=== PATIENT | male | born 1945 | race Caucasian/White ===

== ENCOUNTER → 2016-06-18 | Outpatient (CLI) | payer MEDICARE ==
[2016-06-18 13:14] LABS: Blood Urea Nitrogen 19 mg/dL (9-20); Non-African American GFR(MDRD) >60 (>60 ml/min/1.73 sqM)
--- NOTE | 2016-06-18 13:57 | CT ---
EXAMINATION TYPE: CT chest w con DATE OF EXAM: 06/18/2016 1:38 PM COMPARISON: 03/31/2006 HISTORY: Shortness of Breath CT DLP: 383.9 mGycm Automated exposure control for dose reduction was used. CONTRAST: CT scan of the chest is performed with IV Contrast, patient injected with 100 mL of Omnipaque 300. FINDINGS: LUNGS: The lungs are grossly clear, there is no concerning parenchymal mass or nodule identified. T here is no pleural effusion or pneumothorax seen. The tracheobronchial tree is patent. Calcified gra nuloma right upper lobe stable in appearance. There are 2 additional nodules one within the right mid dle lobe and one within the right lower lobe measuring approximately 2 mm. Too small to characterize. MEDIASTINUM: There are no greater than 1 cm hilar or mediastinal lymph nodes. No pericardial effusi on is seen. Ossified lymph nodes in the hilum. OTHER: No additional significant abnormality is seen. There is a 1 cm nodule involving the right adr enal gland and 8mm nodule involving the left adrenal gland. Small accessory spleen noted. IMPRESSION: 1. No acute intrathoracic process. 2. Chronic granulomatous disease. 3. Additional 2 mm nodule image 34 right middle lobe too small to characterize. 2 mm nodule superior segment right lower lobe also noted. Follow-up 6 month basis. 4. Bilateral adrenal nodules are stable and most consistent with adrenal adenoma.
== END | disposition home or self-care (01) ==
LOC: RADCTMAIN 12:26
PROVIDERS: ATTEND Internal Medicine
DX: J84.10 Pulmonary fibrosis, unspecified (principal); R91.8 Other nonspecific abnormal finding of lung field
CPT/HCPCS: 82565; 84520; 71260; 36415; Q9967

== ENCOUNTER → 2016-09-05 | Outpatient (CLI) | payer MEDICARE | LOC: LABWHC1 13:49 | PROVIDERS: ATTEND Internal Medicine | DX: E03.9 Hypothyroidism, unspecified (principal) | CPT/HCPCS: 36415; 84443 ==

== ENCOUNTER 2017-05-29 10:19 | Day surgery (SDC) | payer MEDICARE ==
[~2017-05-29 10:19] MED LIST: LACTATED RINGERS 1,000 ML IV SCH; LIDOCAINE 1% 20 ML VIAL (10MG/ML) FOR IV START INTRADERMA PRN
[2017-05-29 10:51] VITALS: TEMP 98.2
[2017-05-29] MEDS ORDERED: PROPOFOL 10 MG/ML 20 ML VIAL IV ONE (11:47)
[2017-05-29 12:31] VITALS: RESP 16
[2017-05-29 12:59] VITALS: BP 143/78; PULSE 66
--- NOTE | 2017-05-29 13:38 | P.PCN ---
Date of Procedure: 05/29/17 Procedure(s) Performed: Procedure: Total colonoscopy. Preoperative diagnosis: Screening for neoplasia, patient has history of polyps. Preoperative diagnosis: Exam within normal limits. Preparation: HalfLytely prep. Sedation: Was provided by anesthesia. Brief clinical history: The patient is a 72-year-old male who is scheduled for this evaluation for screening for neoplasia because of history of polyps. His last exam was in September 2011. The patient is not having any abdominal complaints, bleeding or anemia. Procedure: With the patient on his left lateral decubitus position and after informed consent and adequate sedation, the perianal area was inspected and it did not show any fissures or fistulas. There were no masses felt on digital rectal examination. The Olympus CFQ 160L video colonoscope was then inserted in the rectum in the usual fashion and advanced to the cecum. The mucosa appeared healthy. No polyps or tumors were seen or any obvious diverticular disease or other pathology. I retroflexed the endoscope in the rectum before the endoscope was withdrawn. The patient tolerated the procedure well. Plan: The patient was reassured. He will follow up with you as planned and I recommended repeat exam in 5 years.
== END 2017-05-29 13:00 | disposition home or self-care (01) ==
LOC: ORWHC2ENDO 10:19
DX: Z12.11 Encounter for screening for malignant neoplasm of colon (principal); Z86.010 Personal history of colon polyps; I10 Essential (primary) hypertension; E07.9 Disorder of thyroid, unspecified; N40.0 Benign prostatic hyperplasia without lower urinary tract symptoms; Z79.82 Long term (current) use of aspirin; Z79.899 Other long term (current) drug therapy
CPT/HCPCS: J2704; G0105

== ENCOUNTER 2018-01-13 15:51 | Emergency (ER) | payer MEDICARE ==
[2018-01-13 15:59] VITALS: BP 141/79; PULSE 74; RESP 18; TEMP 98.1
--- NOTE | 2018-01-13 16:17 | ED ---
ENT HPI - General Chief complaint: ENT Stated complaint: bee in ear Time Seen by Provider: 01/13/18 16:01 Source: patient, RN notes reviewed Mode of arrival: ambulatory Limitations: no limitations - History of Present Illness Initial comments: This 72-year-old male past medical history of hypertension presenting today for chief complaint of bug in left ear. Patient states that about half an hour prior to presentation he was swimming in his pool when he felt a bug crawling on his left ear he was unsure what it was. He stated he attempted to swat away the insect however it crawling inside of his ear. Patient admitted to scratching sensation and pain in left ear. He is unable to the bug out state presents emergency department today. While patient was waiting in the emergency department waiting room the insect crawled out, it appeared to be a beetle. Patient's caught insect and brought into the examination room. Remainder of ROS negative patient denies any loss of hearing. - Related Data Home Medications Medication Instructions Recorded Confirmed Aspirin [Adult Low Dose Aspirin EC] 81 mg PO DAILY 05/27/17 05/27/17 Atorvastatin [Lipitor] 20 mg PO HS 05/27/17 05/27/17 Cholecalciferol [Vitamin D3] 1,000 unit PO DAILY 05/27/17 05/27/17 Levothyroxine Sodium [Synthroid] 50 mcg PO QAM 05/27/17 05/27/17 Tamsulosin [Flomax] 0.4 mg PO HS 05/27/17 05/27/17 Vit C/E/Zn/Coppr/Lutein/Zeaxan 1 tab PO DAILY 05/27/17 05/27/17 [Preservision Areds 2 Softgel] Allergies Allergy/AdvReac Type Severity Reaction Status Date / Time No Known Allergies Allergy Verified 01/13/18 15:59 Review of Systems ROS Statement: Those systems with pertinent positive or pertinent negative responses have been documented in the HPI. ROS Other: All systems not noted in ROS Statement are negative. Constitutional: Denies: fever, chills ENT: Reports: ear pain. Denies: throat pain, hearing loss Respiratory: Denies: cough, dyspnea, wheezes Cardiovascular: Denies: chest pain, palpitations Gastrointestinal: Denies: abdominal pain, nausea, vomiting Past Medical History Past Medical History: Hypertension, Prostate Disorder, Thyroid Disorder History of Any Multi-Drug Resistant Organisms: None Reported Past Surgical History: Orthopedic Surgery Additional Past Surgical History / Comment(s): BILATERAL CATARACT. RIGHT KNEE ARTHOSCOPY. RIGHT ARTHROSCOPY OF SHOULDER. PAIN PROCEDURES TO LOWER BACK. Past Anesthesia/Blood Transfusion Reactions: No Reported Reaction Past Psychological History: No Psychological Hx Reported Smoking Status: Former smoker Past Alcohol Use History: Occasional Past Drug Use History: None Reported General Exam - General Exam Comments Initial Comments: General: The patient is awake and alert, in no distress, and does not appear acutely ill. Eye: Pupils are equal, round and reactive to light, extra-ocular movements are intact. No nystagmus. There is normal conjunctiva bilaterally. No signs of icterus. Tympanic membranes are within normal limits bilaterally, cone of light and malleus present bilaterally, no erythema, bulging or effusion. No tympanic membrane perforation. Examination of the left ear revealed very mild erythema of the EAC. Nonedematous. There does not appear to be any retained foreign bodies from the inside. No bleeding of the external auditory canal bilaterally. Ears, nose, mouth and throat: There are moist mucous membranes and no oral lesions. Neck: The neck is supple, there is no tenderness or JVD. Neurological: A&O x 3. CN II-XII intact, There are no obvious motor or sensory deficits. Coordination appears grossly intact. Speech is normal. Skin: Skin is warm and dry and no rashes or lesions are noted. Psychiatric: Cooperative, appropriate mood & affect, normal judgment. Limitations: no limitations Course Vital Signs 01/13/18 15:56 Temperature 98.1 F Pulse Rate 74 Respiratory 18 Rate Blood Pressure 141/79 O2 Sat by Pulse 98 Oximetry Medical Decision Making - Medical Decision Making left ear inspect and compared to the right. There is no significant erythema or edema of the left EAC in comparison with the right. There is no retained foreign body from the beetle in the left EAC. No damage of the left TM, TM equal b/l. Beetle wa green/black, it is not a poisonous species. Case discussed with Dr. Alston. At this time given EAC exam we feel topical ABX are not indicated.Pt was educated on signs and symptoms of infections, and told to return to his PCP if these symptoms arise. Pt agreed with plan and was discharged in stable condition. Pt denied questions at this time. Disposition Clinical Impression: Nonvenomous insect bite of left ear without infection Disposition: HOME SELF-CARE Condition: Good Additional Instructions: Please follow-up with family doctor in the next 2 days of symptoms have not improved. Please return to emergency room if the symptoms increase or worsen or for any other concerns, as discussed. Is patient prescribed a controlled substance at d/c from ED?: No Referrals: Dylon Doss MD [Primary Care Provider] - 1-2 days Time of Disposition: 16:17
== END 2018-01-13 16:28 | disposition home or self-care (01) ==
LOC: EC 15:51
DX: S00.462A Insect bite (nonvenomous) of left ear, initial encounter (principal); W57.XXXA Bitten or stung by nonvenomous insect and other nonvenomous arthropods, initial encounter; I10 Essential (primary) hypertension; E07.9 Disorder of thyroid, unspecified; N42.9 Disorder of prostate, unspecified; Z87.891 Personal history of nicotine dependence; Z79.82 Long term (current) use of aspirin; Z79.899 Other long term (current) drug therapy
CPT/HCPCS: 99282

== ENCOUNTER → 2018-02-20 | Outpatient (CLI) | payer MEDICARE ==
--- NOTE | 2018-02-20 15:37 | MR ---
EXAMINATION TYPE: MR lumbar spine wo con DATE OF EXAM: 02/20/2018 COMPARISON: NONE HISTORY: Spondylosis, lumbar region, right leg pain TECHNIQUE: T1 and T2 axial and sagittal images of the lumbar spine are submitted. FINDINGS: There is no abnormal signal seen within the visualized spinal cord or paraspinal soft tissu es. At L1-2 there is degenerative disc disease. There is left paracentral disc bulging and hypertrophic c hange of the facets. No Canal stenosis. Neural foramina are patent. At L2-3 there is diffuse disc bulging with a more focal left paracentral and lateral disc protrusion or broad-based herniation. Mild left foraminal encroachment. There is borderline to mild central sten osis. Hypertrophic change of the ligamentum flavum and facet joints. At L3-4 there is there is a focal central large disc herniation. There appears to be extrusion of the disc herniation and extension along the posterior aspect of upper margin of the L4 vertebral body. T here is a moderate to severe central stenosis. Ligamentum flavum hypertrophy and facet arthropathy co ntribute to mild bilateral foraminal encroachment. At L4-5 there is degenerative disc disease with discogenic marrow changes. There is severe facet arth ropathy and ligamentum flavum hypertrophy. A tiny 3 mm right synovial cyst related to the right facet not excluded. There is severe central stenosis and bilateral lateral recess stenosis. Moderate to se jarret bilateral foraminal encroachment. At L5-S1 there is extensive discogenic marrow changes. There is increased signal within the disc on b oth T1 and T2 sequences suggestive of discogenic changes on a degenerative basis. There is facet arth ropathy. Neural foramina demonstrate no significant encroachment and there is no canal stenosis. IMPRESSION: 1. Multilevel degenerative disc disease with hypertrophic spurring anteriorly. Increased signal on T1 and T2 at L5-S1 level is most typical discogenic changes and degenerative disc disease. If there is concern for discitis correlate clinically with sedimentation rate and if necessary with postcontrast axial and sagittal images. Findings are felt to BE most likely related to degenerative disc disease. 2. Large central disc herniation L3-L4 with extrusion of the disc posterior to the upper margin of th e L4 vertebral segment resulting in significant central stenosis and bilateral foraminal encroachment . 3. Left paracentral and lateral disc protrusion or small herniation L2-L3 with left-sided foraminal e ncroachment and borderline to mild central stenosis. 4. Severe degenerative disc disease with severe facet arthropathy and ligamentum flavum hypertrophy L 4-L5. Findings result in severe canal stenosis and moderate to severe bilateral foraminal encroachmen t. 5. There is a small left adrenal nodule measuring 7 mm which is too small to characterize. Likely rel ated to an incidental adrenal adenoma. #6 left paracentral disc bulge L1-L2 with no evidence of canal stenosis or foraminal encroachment.
== END ==
LOC: RADMRIMAIN 14:29
PROVIDERS: ATTEND Internal Medicine
DX: M48.061 Spinal stenosis, lumbar region without neurogenic claudication (principal); M51.26 Other intervertebral disc displacement, lumbar region; M51.37 Other intervertebral disc degeneration, lumbosacral region; M46.96 Unspecified inflammatory spondylopathy, lumbar region; M24.28 Disorder of ligament, vertebrae
CPT/HCPCS: 72148

== ENCOUNTER → 2019-06-04 | Outpatient (CLI) | payer MEDICARE ==
--- NOTE | 2019-06-04 12:07 | XR ---
EXAMINATION TYPE: XR shoulder complete LT DATE OF EXAM: 06/04/2019 COMPARISON: NONE HISTORY: Pain TECHNIQUE: Three views are submitted. FINDINGS: The osseous structures are intact. There is no acute fracture or dislocation. The AC joint is maint ained. Remote trauma left clavicle. IMPRESSION: 1. No acute process.
== END | disposition home or self-care (01) ==
LOC: RADXRMAIN 10:18
PROVIDERS: ATTEND Internal Medicine
DX: M25.512 Pain in left shoulder (principal)

== ENCOUNTER → 2019-06-08 | Outpatient (CLI) | payer MEDICARE ==
--- NOTE | 2019-06-09 11:42 | ECHOF ---
Referral Reason:I34.0 Nonrheumatic mitral (valve) insufficiency MEASUREMENTS -------- HEIGHT: 185.4 cm WEIGHT: 88.5 kg BP: RVIDd: 3.2 cm (< 3.3) IVSd: 1.3 cm (0.6 - 1.1) LVIDd: 4.7 cm (3.9 - 5.3) LVPWd: 1.5 cm (0.6 - 1.1) IVSs: 1.6 cm LVIDs: 3.2 cm LVPWs: 1.8 cm LAESV Index (A-L): 38.82 ml/m Ao Diam: 3.9 cm (2.0 - 3.7) AV Cusp: 2.4 cm (1.5 - 2.6) LA Diam: 2.8 cm (2.7 - 3.8) MV EXCURSION: 19.848 mm (> 18.000) MV EF SLOPE: 120 mm/s (70 - 150) EPSS: 0.5 cm MV E Brandon: 0.85 m/s MV DecT: 278 ms MV A Brandon: 0.67 m/s MV E/A Ratio: 1.27 RAP: 5.00 mmHg RVSP: 32.94 mmHg FINDINGS -------- Sinus rhythm. This was a technically adequate study. The left ventricular size is normal. There is mild concentric left ventricular hypertrophy. Overa ll left ventricular systolic function is normal with, an EF between 55 - 60 %. The diastolic fillin g pattern is normal for the age of the patient 12.94. The right ventricle is mildly enlarged. LA is moderately dilated 34-39 ml/m2 The right atrium is mildly enlarged. Interatrial and interventricular septum intact. The aortic valve is trileaflet and appears structurally normal. There is mild aortic valve sclerosi s. There is no evidence of aortic regurgitation. [id number] mitral regurgitation is present. Mild tricuspid regurgitation present. There is borderline pulmonary artery hypertension. The righ t ventricular systolic pressure, as measured by Doppler, is 32.94mmHg. There is no pulmonic regurgitation present. The aortic root is mildy dilated. IVC Not well visulized. There is no pericardial effusion. CONCLUSIONS -------- 1. Sinus rhythm. 2. This was a technically adequate study. 3. The left ventricular size is normal. 4. There is mild concentric left ventricular hypertrophy. 5. Overall left ventricular systolic function is normal with, an EF between 55 - 60 %. 6. The diastolic filling pattern is normal for the age of the patient 12.94 7. The right ventricle is mildly enlarged. 8. LA is moderately dilated 34-39 ml/m2 9. The right atrium is mildly enlarged. 10. Interatrial and interventricular septum intact. 11. The aortic valve is trileaflet and appears structurally normal. 12. There is mild aortic valve sclerosis. 13. There is no evidence of aortic regurgitation. 14. Eztr-fy-bwnxdftw mitral regurgitation is present. 15. Mild tricuspid regurgitation present. 16. There is borderline pulmonary artery hypertension. 17. The right ventricular systolic pressure, as measured by Doppler, is 32.94mmHg. 18. There is no pulmonic regurgitation present. 19. The aortic root is mildy dilated. 20. IVC Not well visulized. 21. There is no pericardial effusion. CONTACT LENS FLASHING PUNCHER: Araseli Durbin RDCS
== END | disposition home or self-care (01) ==
LOC: RADECHMAIN 14:47
PROVIDERS: ATTEND Internal Medicine
DX: I08.1 Rheumatic disorders of both mitral and tricuspid valves (principal)
CPT/HCPCS: 93306

== ENCOUNTER → 2019-06-11 | Outpatient (CLI) | payer MEDICARE ==
--- NOTE | 2019-06-11 15:58 | US ---
EXAMINATION TYPE: US carotid duplex BILAT DATE OF EXAM: 06/11/2019 COMPARISON: NONE CLINICAL HISTORY: I65.23 Occlusion and stenosis of bilateral carotid. EXAM MEASUREMENTS: RIGHT: Peak Systolic Velocity (PSV) cm/sec ----- Right CCA: 79.3 ----- Right ICA: 85.3 ----- Right ECA: 79.8 ICA/CCA ratio: 1.1 RIGHT: End Diastole cm/sec ----- Right CCA: 21.2 ----- Right ICA: 21.5 ----- Right ECA: 11.7 LEFT: Peak Systolic Velocity (PSV) cm/sec ----- Left CCA: 102.7 ----- Left ICA: 109.2 ----- Left ECA: 83.3 ICA/CCA ratio: 1.1 LEFT: End Diastole cm/sec ----- Left CCA: 25.2 ----- Left ICA: 41.3 ----- Left ECA: 12.3 VERTEBRALS (direction of flow): Right Vertebral: Antegrade Left Vertebral: Antegrade Rhythm: Normal [place] scale images show mild peripheral plaque centered at carotid bulb level bilaterally. Velocity me asurements and ratios the visualized portion of both internal carotid arteries is within normal limit s. IMPRESSION: No hemodynamically significant stenosis in either internal carotid artery. Criteria for Assigning % of Stenosis / Diameter reduction (Estimation based on the indirect measurements of the internal carotid artery velocities (ICA PSV). 1. Normal (no stenosis)=ICA PSV < 125 cm/s: ratio < 2.0: ICA EDV<40 cm/s. 2. Less than 50% stenosis=ICA PSV < 125 cm/s: ratio < 2.0: ICA EDV<40 cm/s. 3. 50 to 69% stenosis=ICA PSV of 125 to 230 cm/s: ration 2.0 ? 4.0: ICA EDV 40-100 cm/s. 4. Greater than 70% stenosis to near occlusion= ICA PSV > 230 cm/s: ratio > 4.0: ICA EDV > 100 cm/s. 5. Near occlusion= ICA PSV velocities may be low or undetectable: variable ratio and ICA EDV. 6. Total occlusion=unable to detect flow.
== END | disposition home or self-care (01) ==
LOC: RADUSWWP 14:49
PROVIDERS: ATTEND Internal Medicine
DX: I65.23 Occlusion and stenosis of bilateral carotid arteries (principal)
CPT/HCPCS: 93880

== ENCOUNTER → 2020-06-22 | Outpatient (CLI) | payer MEDICARE ==
--- NOTE | 2020-06-22 13:24 | XR ---
Right knee and right femur HISTORY: MID thigh pain, M 79.604 3 views of the right knee, frontal lateral views of the right femur on 4 images There is marginal spurring and joint space loss greatest in the medial compartment and patellofemoral joint. No evident joint effusion. Alignment and bone mineralization are maintained in the right knee . The right femur shows osteoarthritic change in the right hip, marginal spurring and joint space loss, remodeling of the femoral head. No fracture or dislocation. Bone mineralization is maintained. IMPRESSION: Osteoarthritis.
== END | disposition home or self-care (01) ==
LOC: RADXRMAIN 12:49
PROVIDERS: ATTEND Internal Medicine
DX: M16.11 Unilateral primary osteoarthritis, right hip (principal); M17.11 Unilateral primary osteoarthritis, right knee

== ENCOUNTER 2021-01-24 06:59 | Day surgery (SDC) | payer MEDICARE ==
[2021-01-23 08:54] VITALS: BMI 25.9
[~2021-01-24 06:59] MED LIST changes: +LIDOCAINE 1% (10MG/ML) FOR IV START INTRADERMA PRN; -LIDOCAINE 1% 20 ML VIAL (10MG/ML) FOR IV START INTRADERMA PRN
[2021-01-24 07:29] VITALS: RESP 16; TEMP 97.2
[2021-01-24] MEDS ORDERED: PROPOFOL 10 MG/ML 20 ML VIAL IV ONE (07:44)
[2021-01-24] MEDS ORDERED: LIDOCAINE 1% INJ 10MG/ML (20 ML MDV) ONE (07:44)
--- NOTE | 2021-01-24 08:13 | P.PCN ---
Date of Procedure: 01/24/21 Procedure(s) Performed: BRIEF HISTORY: Patient is a 75-year-old pleasant male scheduled for an elective colonoscopy as a part of surveillance of large colon polyp that was noted on recent colonoscopy in August of this year. The polyp was 3-4 cm broad-based based on the ileocecal valve that was removed by piecemeal snare polypectomy and biopsies revealed tubular adenoma. PROCEDURE PERFORMED: Colonoscopy with snare polypectomy and argon plasma coagulation. PREOPERATIVE DIAGNOSIS: Follow-up of large ileocecal valve polyp. IV sedation per Anesthesia. PROCEDURE: After informed consent was obtained, the patient, was brought into the endoscopy unit. IV sedation was administered by Anesthesia under continuous monitoring. Digital rectal examination was normal. Initially the Olympus CF-160 flexible video colonoscope was then inserted in the rectum, gradually advanced into the cecum without any difficulty. Careful examination was performed as the scope was gradually being withdrawn. Ileocecal valve and the appendiceal orifice were visualized and appeared normal. Prep was excellent. In the inferior lip of the ileocecal valve there was a 2 cm flat residual polyp identified. Part of the polyp was removed by snare polypectomy followed by argon plasma coagulation. Mucosa of the cecum, ascending colon, transverse colon, descending colon, sigmoid colon, and rectum appeared normal. Retroflexion was performed in the rectum and no lesions were seen. The patient tolerated the procedure well. IMPRESSION: 2 cm residual polyp on the ileocecal valve status post snare polypectomy followed by argon plasma coagulation RECOMMENDATIONS: Findings of this examination were discussed with the patient as well as his family. He was advised to follow with the biopsy results and will plan a repeat colonoscopy in one year..
[2021-01-24] MEDS ORDERED: LACTATED RINGERS 1,000 ML IV ONE (08:14)
[2021-01-24] MEDS ORDERED: IV FLUID CONTINUATION 750 ML IV ONE (08:14)
[2021-01-24 08:30] VITALS: BP 133/73; PULSE 54
== END 2021-01-24 08:52 | disposition home or self-care (01) ==
LOC: ORWHC2ENDO 06:59
PROVIDERS: ATTEND Internal Medicine Gastroenterology
DX: D12.0 Benign neoplasm of cecum (principal); E78.5 Hyperlipidemia, unspecified; E07.9 Disorder of thyroid, unspecified; Z87.891 Personal history of nicotine dependence; N40.0 Benign prostatic hyperplasia without lower urinary tract symptoms; Z98.890 Other specified postprocedural states
CPT/HCPCS: 45385; 88305; J2001; J2704; 45388

== ENCOUNTER 2021-08-31 07:30 | Day surgery (SDC) | payer MEDICARE ==
[2021-08-29 10:53] VITALS: BMI 25.7
[2021-08-31 07:47] VITALS: TEMP 97.5
[2021-08-31] MEDS: LACTATED RINGERS 1,000 ML IV SCH ×2 (08:03→08:48)
[2021-08-31] MEDS ORDERED: PROPOFOL 10 MG/ML 20 ML VIAL IV ONE (08:50)
--- NOTE | 2021-08-31 09:07 | P.PCN ---
Date of Procedure: 08/31/21 Procedure(s) Performed: BRIEF HISTORY: Patient is a 76-year-old pleasant white male scheduled for an elective colonoscopy as a part of follow-up of large ileocecal valve polyp that was noted on initial colonoscopy in August 2020. He had a 3-4 cm broad-based polyp that was removed by snare polypectomy and had a repeat surveillance colonoscopy in February 2021 which time there was a 2 cm residual polyp that was removed by snare polypectomy. He scheduled for follow-up colonoscopy today. PROCEDURE PERFORMED: Colonoscopy with snare polypectomy. PREOPERATIVE DIAGNOSIS: Follow-up large ileocecal valve polyp. IV sedation per Anesthesia. PROCEDURE: After informed consent was obtained, the patient, was brought into the endoscopy unit. IV sedation was administered by Anesthesia under continuous monitoring. Digital rectal examination was normal. Initially the Olympus CF-160 flexible video colonoscope was then inserted in the rectum, gradually advanced into the cecum without any difficulty. Careful examination was performed as the scope was gradually being withdrawn. Ileocecal valve and the appendiceal orifice were visualized and appeared normal. Prep was excellent. Mucosa of the cecum, appeared normal. There was a 5 mm cecal polyp that was removed by snare polypectomy. On the ileocecal valve and the 2 areas with residual polyps measuring 5 mm in size that was removed by snare polypectomy. The rest of the ascending colon, transverse colon, descending colon, sigmoid colon, and rectum a ppeared normal. In the rectum there was a 3 mm polyp removed by snare polypectomy. Retroflexion was performed in the rectum and no lesions were seen. The patient tolerated the procedure well. IMPRESSION: 5 mm X 2 with severe polyp on the ileocecal valve status post polypectomy 5 mm cecal polyp status post polypectomy 3 mm; sigmoid polyp status post polypectomy RECOMMENDATIONS: Findings of this examination were discussed with the patient as well as his family. He was advised to follow with the biopsy results. If the biopsies reveal adenoma he can have a repeat colonoscopy in 3 years..
[2021-08-31 09:18] VITALS: RESP 16
[2021-08-31 09:41] VITALS: BP 122/73; PULSE 56
== END 2021-08-31 09:48 | disposition home or self-care (01) ==
LOC: ORWHC2ENDO 07:30
PROVIDERS: ATTEND Internal Medicine Gastroenterology
DX: Z86.010 Personal history of colon polyps (principal); D12.0 Benign neoplasm of cecum; D12.5 Benign neoplasm of sigmoid colon
CPT/HCPCS: 45385; 88305; J2704

== ENCOUNTER → 2022-10-28 | Outpatient (CLI) | payer MEDICARE ==
--- NOTE | 2022-10-28 08:42 | MR ---
EXAMINATION TYPE: MR lumbar spine wo con DATE OF EXAM: 10/28/2022 COMPARISON: MRI lumbar spine and 10/05/2017 HISTORY: Lower back pain, RLE radiculopathy, hx surgery. TECHNIQUE: Multiplanar, multisequence images of the lumbar spine were acquired without IV contrast. FINDINGS: Lumbar segments are intact. No paraspinal masses are identified. Paraspinal muscle atrophy identifi ed. Conus medullaris has a normal appearance. Mild retrolisthesis of L1 on L2 and L2 on L3. Type I Mo dic changes involving the inferior endplate of L1, superior endplate of L2, and superior endplate of of L4, and inferior endplate of L3 with T1 hypointense signal/T2/STIR hyperintense signal. Similar Mo dic type II changes involving the inferior endplate of L4 and L5 and superior endplates of S1 and L5. Multilevel disc desiccation. Postsurgical change from laminectomies at L4-L5 T12-L1: No disc herniation. No significant central canal stenosis or neural foraminal stenosis. L1-L2: Left central disc protrusion with mild effacement of the anterior thecal sac. Bilateral facet arthropathy. Right neural foramen is patent. Mild left neural foraminal stenosis. L2-L3: Central disc protrusion superimposed upon a broad-based disc bulge with annular fissure. Minim al effacement of the anterior thecal sac. Bilateral facet arthropathy. No significant neural foramina l stenosis bilaterally. L3-L4: Central disc protrusion with caudal migration of approximately 6 mm superimposed upon a broad- based disc bulge. No significant central canal stenosis. Bilateral facet arthropathy resulting in inc reased moderate to severe left neural foraminal stenosis and moderate right neural foraminal stenosis . L4-L5: Postsurgical change from laminectomy. Broad-based disc bulge without significant central canal stenosis. Bilateral facet arthropathy with similar mild to moderate bilateral neural foraminal steno sis. L5-S1: No significant central canal stenosis. No neural foraminal stenosis. Bilateral facet arthropat hy. Prominent bilateral extrarenal pelvises. Stable small left adrenal gland nodule measuring up to 1.1 c m and considered benign due to stability. IMPRESSION: 1. Multilevel degenerative disc disease with disc herniations at L1-L2, L2-L3, and L3-L4. The worst c entral canal stenosis is mild at L1-L2. Multilevel facet arthropathy most prominently at L3-L4 and L4 -L5 as described above. 2. Postsurgical changes from laminectomy at L4-L5.
== END | disposition home or self-care (01) ==
LOC: RADMRIMAIN 07:24
PROVIDERS: ATTEND Orthopaedic Surgery Sports Medicine
DX: M51.16 Intervertebral disc disorders with radiculopathy, lumbar region (principal); M48.061 Spinal stenosis, lumbar region without neurogenic claudication; M47.26 Other spondylosis with radiculopathy, lumbar region; M96.1 Postlaminectomy syndrome, not elsewhere classified
CPT/HCPCS: 72148

== ENCOUNTER → 2023-03-26 | Outpatient (CLI) | payer MEDICARE ==
--- NOTE | 2023-03-26 11:50 | XR ---
EXAMINATION TYPE: XR shoulder complete LT DATE OF EXAM: 03/26/2023 COMPARISON: 06/04/2019 HISTORY: pain TECHNIQUE: Three views are submitted. FINDINGS: The osseous structures are intact. There is no acute fracture or dislocation. The AC joint is White at 1 cm. Chronic deformity of left clavicle. IMPRESSION: 1. Widened AC joint correlate with MRI for ligamentous injury. 2. Remote left clavicular fracture..
== END | disposition home or self-care (01) ==
LOC: RADXRMAIN 11:34
PROVIDERS: ATTEND Internal Medicine
DX: M25.512 Pain in left shoulder (principal); Z87.81 Personal history of (healed) traumatic fracture

== ENCOUNTER → 2023-08-04 | Outpatient (CLI) | payer MEDICARE ==
--- NOTE | 2023-08-04 12:28 | US ---
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 Indirect Doppler criteria was utilized. FINDINGS: EXAM MEASUREMENTS: RIGHT: Peak Systolic Velocity (PSV) cm/sec ----- Right CCA: 51.3 ----- Right ICA: 76.8 ----- Right ECA: 91.9 ICA/CCA ratio: 1.5 RIGHT: End Diastole cm/sec ----- Right CCA: 13.5 ----- Right ICA: 32.8 ----- Right ECA: 13.5 LEFT: Peak Systolic Velocity (PSV) cm/sec ----- Left CCA: 59.2 ----- Left ICA: 63.9 ----- Left ECA: 64.3 ICA/CCA ratio: 1.1 LEFT: End Diastole cm/sec ----- Left CCA: 17.0 ----- Left ICA: 18.6 ----- Left ECA: 12.1 VERTEBRALS (direction of flow): Right Vertebral: Antegrade Left Vertebral: Antegrade Rhythm: Normal [employer]ION [employer]ER NOTES: Mild homogeneous plaque seen with no stenosis seen IMPRESSION: Less than 50% stenosis of the bilateral carotid bifurcations. Criteria for Assigning % of Stenosis / Diameter reduction (Estimation based on the indirect measurements of the internal carotid artery velocities (ICA PSV). 1. Normal (no stenosis)=ICA PSV < 125 cm/s: ratio < 2.0: ICA EDV<40 cm/s. 2. Less than 50% stenosis=ICA PSV < 125 cm/s: ratio < 2.0: ICA EDV<40 cm/s. 3. 50 to 69% stenosis=ICA PSV of 125 to 230 cm/s: ration 2.0 ? 4.0: ICA EDV 40-100 cm/s. 4. Greater than 70% stenosis to near occlusion= ICA PSV > 230 cm/s: ratio > 4.0: ICA EDV > 100 cm/s. 5. Near occlusion= ICA PSV velocities may be low or undetectable: variable ratio and ICA EDV. 6. Total occlusion=unable to detect flow.
== END | disposition home or self-care (01) ==
LOC: RADUSWWP 11:43
PROVIDERS: ATTEND Internal Medicine
DX: I65.23 Occlusion and stenosis of bilateral carotid arteries (principal)
CPT/HCPCS: 93880

== ENCOUNTER → 2024-07-29 | Outpatient (CLI) | payer MEDICARE ==
--- NOTE | 2024-07-29 09:43 | US ---
EXAMINATION TYPE: US liver DATE OF EXAM: 07/29/2024 COMPARISON: NONE CLINICAL INDICATION: Male, 79 years old with history of R79.89 OTHER SPECIFIED ABNORMAL FINDINGS OF B LOOD; Elevated liver function test TECHNIQUE: Grayscale and color Doppler imaging of the right upper quadrant. FINDINGS: EXAM MEASUREMENTS: Liver Length: 16.7 cm Gallbladder Wall: 0.47 cm CBD: 0.46 cm, color Doppler imaging was utilized to isolate the common bile duct for measurement. 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 Small portion seen appears hyperechoic. Liver: Appears coarse in echotexture Gallbladder: Wall thickening= 0.47 cm. Evidence for sonographic Mark's sign: No CBD: wnl Right Kidney: Appearance of anechoic hydro medially at mid Suboptimal evaluation of the entire pancreas. Visualized portion appears within normal limits. Liver is upper limits of normal in size and heterogeneously hyperechoic in appearance. This limits evaluati on for focal masses. No ascites is present. No shadowing mobile gallstones. Suspect mild to moderate right-sided hydronephrosis. IMPRESSION: 1. Heterogeneous hyperechoic appearance of the liver consistent with diffuse fatty infiltration and/o r underlying hepatocellular disease. 2. Mild to moderate right-sided hydronephrosis is now present. Further clinical workup advised. [facility], , 07/29/2024 9:40 AM
== END | disposition home or self-care (01) ==
LOC: RADUSWWP 08:54
PROVIDERS: ATTEND Internal Medicine
DX: N13.30 Unspecified hydronephrosis (principal); R79.89 Other specified abnormal findings of blood chemistry
CPT/HCPCS: 76705

== ENCOUNTER 2024-08-11 09:13 | Day surgery (SDC) | payer MEDICARE ==
[~2024-08-11 09:13] MED LIST changes: -LACTATED RINGERS 1,000 ML IV SCH
[2024-08-11 09:47] VITALS: TEMP 97.1
[2024-08-11] MEDS: LACTATED RINGERS 1,000 ML IV SCH (09:51)
[2024-08-11] MEDS: IV FLUID CONTINUATION 1,000 ML IV ONE (09:51)
[2024-08-11] MEDS ORDERED: PROPOFOL 10 MG/ML 20 ML VIAL IV ONE (10:13)
--- NOTE | 2024-08-11 10:34 | P.PCN ---
Date of Procedure: 08/11/24 Procedure(s) Performed: BRIEF HISTORY: Patient is a 79-year-old pleasant white male scheduled for an elective colonoscopy as a part of screening for prior history of colon polyps. His last colonoscopy was 3 years ago and was noted to have a tubular adenoma. PROCEDURE PERFORMED: Colonoscopy with snare polypectomy. PREOPERATIVE DIAGNOSIS: Screening for history of colon polyps. IV sedation per Anesthesia. PROCEDURE: After informed consent was obtained, the patient, was brought into the endoscopy unit. IV sedation was administered by Anesthesia under continuous monitoring. Digital rectal examination was normal. Initially the Olympus CF-160 flexible video colonoscope was then inserted in the rectum, gradually advanced into the cecum without any difficulty. Careful examination was performed as the scope was gradually being withdrawn. Ileocecal valve and the appendiceal orifice were visualized and appeared normal. Prep was excellent. Mucosa of the cecum, ascending colon, transverse colon, descending colon, sigmoid colon, and rectum appeared normal. In the distal rectum there was a 5 mm sessile polyp removed by cold snare polypectomy. Retroflexion was performed in the rectum and no lesions were seen. The patient tolerated the procedure well. IMPRESSION: 5 mm rectal polyp status post cold snare polypectomy Rest of the colon appeared normal RECOMMENDATIONS: Findings of this examination were discussed with the patient as well as his family. He was advised to follow-up with the biopsy results..
[2024-08-11 11:05] VITALS: BP 144/66; PULSE 58; RESP 16
== END 2024-08-11 11:35 | disposition home or self-care (01) ==
LOC: ORWHC2ENDO 09:13
PROVIDERS: ATTEND Internal Medicine Gastroenterology
DX: Z12.11 Encounter for screening for malignant neoplasm of colon (principal); K62.1 Rectal polyp; I48.91 Unspecified atrial fibrillation; E78.5 Hyperlipidemia, unspecified; N42.9 Disorder of prostate, unspecified; E07.9 Disorder of thyroid, unspecified; Z79.890 Hormone replacement therapy; Z79.899 Other long term (current) drug therapy; Z86.0101 Personal history of adenomatous and serrated colon polyps
CPT/HCPCS: 88305; 45385; J2704

== ENCOUNTER → 2024-08-18 | Outpatient (CLI) | payer MEDICARE ==
[2024-08-18 11:39] LABS: African American GFR (CKD) >90 (>60 ml/min/1.73 sqM); Blood Urea Nitrogen 14 mg/dL (9-20); Non-African American GFR(CKD) >90 (>60 ml/min/1.73 sqM)
--- NOTE | 2024-08-18 13:27 | CT ---
CT angiogram HISTORY: Nonspecific hydronephrosis. COMPARISON: None TECHNIQUE: Multiple axial images were obtained through the abdomen and pelvis before and after IV con trast. Delayed postcontrast images were included in the exam. FINDINGS: Lung bases are clear. On the pre-IV contrast images, there are no renal calcifications or ureteral calcifications. There a re no gallstones. The gallbladder is normal and there is no distention or biliary ductal dilatation. There are no focal masses within the liver, pancreas, spleen or adrenal glands and there is no organo megaly. Kidneys excrete contrast promptly and symmetrically and there is no solid renal mass, hydronephrosis or filling defect within the renal collecting systems, ureters or urinary bladder. There is a parapel kelvin cyst on the right and there are extra renal pelvises bilaterally. The bowel loops are normal in caliber and there is no dilatation or obstruction. No inflammatory sylvester ges are identified in the bowel wall or mesentery. There is no free intraperitoneal air or fluid. There is no pelvic mass, free fluid, abscess or adenopathy. 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 IMPRESSION: 1. Bilateral extrarenal pelvises bilaterally but no hydronephrosis. 2. Parapelvic cyst on the right. 3. No solid renal mass or renal calcification. [facility], , 08/18/2024 1:25 PM
== END | disposition home or self-care (01) ==
LOC: RADCTMAIN 10:28
PROVIDERS: ATTEND Internal Medicine
DX: N13.30 Unspecified hydronephrosis (principal); R19.00 Intra-abdominal and pelvic swelling, mass and lump, unspecified site
CPT/HCPCS: 82565; 84520; 74178; 36415; 74400; Q9967

== ENCOUNTER → 2024-09-01 | Outpatient (CLI) | payer MEDICARE ==
[2024-09-01 15:55] LABS: Hepatitis A Antibody IgM Nonreactive (Nonreactive); Hepatitis B Core IgM Nonreactive (Nonreactive); Hepatitis B Surface Antigen Nonreactive (Nonreactive); Hepatitis C IgG Antibody Nonreactive (Nonreactive)
[2024-09-01 16:07] LABS: Ceruloplasmin 21.3 mg/dL (20.0-60.0)
[2024-09-01 16:24] LABS: % Iron Saturation 34.29 (15.00-50.00); ALT 32 U/L (10-49); AST 34 U/L (14-35); Albumin 4.1 g/dL (3.8-4.9); Albumin/Globulin Ratio 1.95 Ratio (1.60-3.17); Alkaline Phosphatase 125 U/L (41-126); Blood Urea Nitrogen 12.8 mg/dL (9.0-27.0); Calcium 9.1 mg/dL (8.7-10.3); Carbon Dioxide 24.2 mmol/L (21.6-31.8); Chloride 106 mmol/L (96-109); Chol/HDL Ratio 2.63 Ratio; GGT 20 U/L (0-73); Globulin 2.1 g/dL (1.6-3.3); Glucose 101 mg/dL (70-110); Iron 108 UG/DL (65-175); LDL Cholesterol,Calculated 56.3 mg/dL (0.0-131.0); Potassium 4.3 mmol/L (3.5-5.5); Rheumatoid Factor, Qnt <15 IU/mL (0-15); Sodium 140 mmol/L (135-145); Total Bilirubin 0.7 mg/dL (0.3-1.2); Total Iron Binding Capacity 315 UG/DL (228-460); Total Protein 6.2 g/dL (6.2-8.2)
[2024-09-02 10:27] LABS: Liver/Kidney Microsome Antibod 0.7 UNITS (<=20)
== END | disposition home or self-care (01) ==
LOC: LABWHC1 10:00
PROVIDERS: ATTEND Internal Medicine
DX: R79.89 Other specified abnormal findings of blood chemistry (principal)
CPT/HCPCS: 36415; 80053; 80061; 80074; 82390; 82525; 82728; 82977; 83516; 83540; 83550; 86038; 86376; 86431